=== PATIENT | male | born 1960 | race Caucasian/White ===

== ENCOUNTER 2016-10-24 10:37 | Emergency (ER) | payer BC ==
[2016-10-24 11:18] VITALS: BP 112/78
--- NOTE | 2016-10-24 12:00 | UC ---
Dental HPI - HPI Summary HPI Summary: complaint of dental pain lower right jaw that started approx4 days ago swelling has increased over the last 2 days started amoxicillin 1 weeka go and saw dentisit today whosent him her to deal with infection taking percocet iwth some relief denies fever and chills - History of Current Complaint Chief Complaint: UCDentalProblem Stated Complaint: DENTAL PAIN Time Seen by Provider: 10/24/16 11:48 Hx Obtained From: Patient - Allergies/Home Medications Allergies/Adverse Reactions: Allergies Allergy/AdvReac Type Severity Reaction Status Date / Time No Known Allergies Allergy Verified 10/24/16 11:18 Home Medications: Home Medications Amoxicillin CAP* [Amoxicillin 500 MG CAP*] 500 mg PO TID 10/24/16 [History Confirmed 10/24/16] Codeine TAB* [Codeine Tab*] 15 mg PO Q4H PRN 10/24/16 [History Confirmed ] PMH/Surg Hx/FS Hx/Imm Hx Previously Healthy: Yes Psychological History: Depression - Surgical History Surgical History: Yes Surgery Procedure, Year, and Place: appendectomy. fx arm. undescended testicle - Family History Known Family History: Negative: Cardiac Disease, Hypertension, Diabetes - Social History Occupation: Employed Full-time Lives: With Family Alcohol Use: None Alcohol Amount: none for >10 years Substance Use Type: None Smoking Status (MU): Heavy Every Day Tobacco Smoker Type: Cigarettes Amount Used/How Often: 1 ppd Length of Time of Smoking/Using Tobacco: 36 yrs Household Exposure Type: Cigarettes Cessation Counseling: Patient Advised to Stop - Immunization History Most Recent Influenza Vaccination: none Review of Systems Constitutional: Negative Skin: Negative Eyes: Negative ENT: Dental Pain Respiratory: Negative Cardiovascular: Negative Gastrointestinal: Negative Genitourinary: Negative Motor: Negative Neurovascular: Negative Musculoskeletal: Negative Neurological: Negative Psychological: Negative All Other Systems Reviewed And Are Negative: Yes Physical Exam Triage Information Reviewed: Yes Appearance: No Pain Distress, Well-Nourished Vital Signs: Initial Vital Signs Temp 98.6 F 10/24/16 11:12 Pulse 63 10/24/16 11:12 Resp 14 10/24/16 11:12 BP 112/78 10/24/16 11:12 Pulse Ox 97 10/24/16 11:12 Vital Signs Reviewed: Yes Eyes: Positive: Conjunctiva Clear ENT: Positive: Pharynx normal, TMs normal Dental: Positive: Abscess @ - underneath 28.29.30 Neck: Positive: No Lymphadenopathy Respiratory: Positive: Lungs clear, Normal breath sounds, No respiratory distress Cardiovascular: Positive: RRR, No Murmur, Pulses Normal Abdomen Description: Positive: Nontender, Soft Bowel Sounds: Positive: Present Musculoskeletal: Positive: No Edema Neurological: Positive: Alert Psychological Exam: Normal Skin Exam: Normal Dental Complaint Course/Dx - Course Course Of Treatment: exam completed. abscess beneath 28,29,30- will giev rocephin and change antibiotic to clindamyacin, if no improvement overnight or symptoms worsen will seek care in the ED - Differential Dx/Diagnosis Differential Diagnosis/Dx: Dental Abscess, Odontogenic Pain Provider Diagnoses: dental abscess Discharge - Discharge Plan Condition: Stable Disposition: HOME Patient Education Materials: Dental Abscess (ED) Additional Instructions: Please stop amoxicillin and start clindamycin as directed Increase fluids and rest Take acetaminophen or ibuprofen for fever or pain If your symptoms do not improve overnight or you develop a fever please proceed to the emergency room for further care Please review your discharge instructions.
[2016-10-24] MEDS ORDERED: cefTRIAXone VIAL(*) 1,000 MG VIAL IM ONE (12:13)
[2016-10-24] MEDS ORDERED: Lidocaine 1% MPF* 2 ML VIAL ONE (12:16)
== END 2016-10-24 12:55 | disposition home or self-care (01) ==
LOC: UCCORT 10:37
DX: K04.7 Periapical abscess without sinus (principal)
CPT/HCPCS: 96372; 99212; G0463; J0696

== ENCOUNTER 2019-06-04 13:35 | Emergency (ER) | payer BC, OTHER ==
[2019-06-04 14:03] VITALS: BP 120/84
--- NOTE | 2019-06-04 14:24 | UC ---
Hand/Wrist HPI - HPI Summary HPI Summary: Pt presents with c/o sudden onset left thumb swelling, pain, and mild erythema X 2 days. - History Of Current Complaint Chief Complaint: UCUpperExtremity Stated Complaint: LT THUMB COMPLAINT Time Seen by Provider: 06/04/19 14:21 Hx Obtained From: Patient ?: No Onset/Duration: Sudden Onset, Lasting Days, Still Present Severity Initially: Mild Severity Currently: Severe Pain Intensity: 9 Character Of Pain: Sharp, Aching, Stiffness Aggravating Factor(s): Movement Alleviating Factor(s): Rest Associated Signs And Symptoms: Positive: Swelling, Redness Related History: Dominant Hand Right - Risk Factors Compartment Syndrome Risk Factors: Pain - Allergies/Home Medications Allergies/Adverse Reactions: Allergies Allergy/AdvReac Type Severity Reaction Status Date / Time No Known Allergies Allergy Verified 06/04/19 13:58 PMH/Surg Hx/FS Hx/Imm Hx Previously Healthy: Yes - Surgical History Surgical History: Yes Surgery Procedure, Year, and Place: appendectomy. fx arm. undescended testicle - Family History Known Family History: Negative: Cardiac Disease, Hypertension, Diabetes - Social History Occupation: Employed Full-time Lives: With Family Alcohol Use: None Alcohol Amount: none for >10 years Substance Use Type: None Smoking Status (MU): Heavy Every Day Tobacco Smoker Type: Cigarettes Amount Used/How Often: 1 ppd Length of Time of Smoking/Using Tobacco: 36 yrs Have You Smoked in the Last Year: Yes Household Exposure Type: Cigarettes - Immunization History Most Recent Influenza Vaccination: none Review of Systems All Other Systems Reviewed And Are Negative: Yes Constitutional: Positive: Negative Skin: Positive: Other - mild erythema left thumb Eyes: Positive: Negative ENT: Positive: Negative Respiratory: Positive: Negative Cardiovascular: Positive: Negative Gastrointestinal: Positive: Negative Genitourinary: Positive: Negative Motor: Positive: Decreased ROM - left thumb, Other - mild erythema Neurovascular: Positive: Negative Musculoskeletal: Positive: Arthralgia, Decreased ROM, Edema, Myalgia Neurological: Positive: Negative Psychological: Positive: Negative Is Patient Immunocompromised?: No Physical Exam Triage Information Reviewed: Yes Completion Of Physical Exam Limited Due To: Altered Mental Status Vital Signs: Initial Vital Signs Temp 99.1 F 06/04/19 13:59 Pulse 93 06/04/19 13:59 Resp 16 06/04/19 13:59 BP 120/84 06/04/19 13:59 Pulse Ox 97 06/04/19 13:59 Vital Signs Reviewed: Yes Eye Exam: Normal ENT Exam: Normal Dental Exam: Normal Neck exam: Normal Respiratory Exam: Normal Respiratory: Positive: No respiratory distress Musculoskeletal: Positive: ROM Limited @ - left thumb, generalized, Edema @ - left thumb, generalized. Mild erythema, mild increase in temperature compared to right thumb Neurological Exam: Normal Psychological Exam: Normal Skin Exam: Normal - mild erythema left thumb Hand/Wrist Course/Dx - Differential Dx/Diagnosis Differential Diagnosis/HQI/PQRI: Cellulitis, Gout Provider Diagnosis: Gout Discharge ED - Sign-Out/Discharge Documenting (check all that apply): Patient Departure All imaging exams completed and their final reports reviewed: No Studies - Discharge Plan Condition: Stable Disposition: HOME Prescriptions: Colchicine* [Colcrys*] 0.6 mg PO DAILY #3 tab predniSONE 20 mg TAB [Deltasone 20 MG TAB*] 60 mg PO DAILY #12 tab Patient Education Materials: Low Purine Diet (ED), Gout (ED) Referrals: Luigi Lind MD [Primary Care Provider] - As Soon As Possible - Billing Disposition and Condition Condition: STABLE Disposition: Home
== END 2019-06-04 14:41 | disposition home or self-care (01) ==
LOC: UCCORT 13:35
DX: M10.9 Gout, unspecified (principal); F17.210 Nicotine dependence, cigarettes, uncomplicated
CPT/HCPCS: 99212; G0463